=== PATIENT | male | born 1985 | race Caucasian/White ===

== ENCOUNTER 2019-09-26 16:29 | Emergency (ER) | payer MEDICAID ==
[~2019-09-26] VITALS: Ht 182.9 cm; Wt 81.6 kg
[2019-09-26] MEDS: ACETAMINOPHEN 325 MG TABLET PO ONE (17:29)
[2019-09-26] MEDS ORDERED: ACETAMINOPHEN ES 500 MG TABLET ONE (17:29)
--- NOTE | 2019-09-26 18:23 | NUR ---
Updated by ER provider for discharge Patient discharged to home in stable condition. Written and verbal after care instructions given. Patient verbalizes understanding of instruction.
[2019-09-26 18:25] VITALS: BP 125/82
== END 2019-09-26 18:32 | disposition home or self-care (01) ==
LOC: ER 16:32
DX: M54.2 Cervicalgia (principal); M54.9 Dorsalgia, unspecified; V49.59XA Passenger injured in collision with other motor vehicles in traffic accident, initial encounter; Y93.89 Activity, other specified; Y92.488 Other paved roadways as the place of occurrence of the external cause; Y99.8 Other external cause status
CPT/HCPCS: 72125; 72128; 72131; 99285; L0172

== ENCOUNTER 2025-02-06 17:12 | Emergency (ER) | payer MEDICAID ==
[~2025-02-06] VITALS: Ht 180.3 cm; Wt 83.9 kg
[2025-02-06 17:35] VITALS: TEMP 98.1
[2025-02-06] MEDS ORDERED: KETOROLAC TROMETHAMINE 15 MG/ML VIAL ONE (17:57)
[2025-02-06] MEDS: KETOROLAC TROMETHAMINE 15 MG/ML VIAL IM ONE (18:02)
[2025-02-06 18:29] LABS: APPEARANCE,URINE CLEAR (CLEAR); BLOOD, URINE NEGATIVE Ery/uL (NEGATIVE); LEUKOCYTE ESTERASE ,URINE NEGATIVE (NEGATIVE); NITRITE, URINE NEGATIVE (NEGATIVE); UGLUCOSE NEGATIVE (NEGATIVE)
[2025-02-06] MEDS ORDERED: LIDO30AD10 TP (18:57)
[2025-02-06] MEDS ORDERED: NAPR-1009 PO (18:57)
[2025-02-06] MEDS ORDERED: BENZ-13 PO (18:57)
[2025-02-06 19:13] VITALS: BP 125/85; O2SAT 99
== END 2025-02-06 19:12 | disposition home or self-care (01) ==
LOC: ER 18:44
DX: R07.89 Other chest pain (principal)
CPT/HCPCS: 99284; 96372; 71100; 81003; J1885